=== PATIENT | male | born 1995 | race Caucasian/White ===

== ENCOUNTER 2019-05-20 19:24 | Emergency (ER) | payer OTHER ==
[~2019-05-20] VITALS: Ht 190.5 cm; Wt 86.2 kg
[2019-05-20] MEDS ORDERED: OCUFLOX5 ML OPHTHALMIC (19:55)
[2019-05-20] MEDS ORDERED: AMOXIL 875 MG875 M2 PO (19:55)
[2019-05-20 20:00] VITALS: BP 142/97
== END 2019-05-20 20:00 | disposition home or self-care (01) ==
LOC: M.ERS 19:24
DX: J02.0 Streptococcal pharyngitis (principal); H10.9 Unspecified conjunctivitis; F17.200 Nicotine dependence, unspecified, uncomplicated